=== PATIENT | female | born 1950 | race Caucasian/White ===

== ENCOUNTER 2018-05-30 08:13 | Day surgery (SDC) | payer OTHER, BC ==
--- NOTE | 2018-05-29 15:54 | PDGENHP ---
History & Physical Chief Complaint: left distal radius fracture History of Present Illness: Farida is a pleasant 68 year old female who sustained a left distal radius fracture. She had a closed reduction and splinting done at [facility]. Risks, benefits, and alternatives to conservative treatment with casting as well as surgical intervention including ORIF were discussed and patient would like to proceed with ORIF left distal radius fracture. Pertinent Past, Social, Family History: PMH: depresion, osteopenia, thyroid problems. SH: non-contributory. FH: non-contributory Relevant Physical Exam: Sugar tong splint is well fitting. Sensation intact to light touch throughout the digits. Brisk capillary refill. ROM not tested due to splilnt. Cardiorespiratory Assessment: RRR, CTAB
[2018-05-30] MEDS ORDERED: LR 1,000 ML IV ONE (08:23)
[2018-05-30] MEDS ORDERED: ceFAZolin 2 GM/DEXTROSE 100 ML IV ONE (08:23)
[2018-05-30] MEDS ORDERED: BUPIVACAINE 0.5% 30 ML SDV ONE (08:56)
[2018-05-30] MEDS ORDERED: MIDAZOLAM 2 MG/2 ML VIAL IVP ONE (09:29)
--- NOTE | 2018-05-30 09:29 | PDANEPAE ---
ANE History of Present Illness 68 yo for orif wrist ANE Past Medical History - Cardiovascular History Hx Hypertension: No Hx Arrhythmias: No Hx Chest Pain: No Hx Coronary Artery / Peripheral Vascular Disease: No Hx CHF / Valvular Disease: No Hx Palpitations: No - Pulmonary History Hx COPD: No Hx Asthma/Reactive Airway Disease: No Hx Recent Upper Respiratory Infection: No Hx Oxygen in Use at Home: No Hx Sleep Apnea: No Sleep Apnea Screening Result - Last Documented: Negative - Neurologic History Hx Cerebrovascular Accident: No Hx Seizures: No Hx Dementia: No - Endocrine History Hx Diabetes: No - Renal History Hx Renal Disorders: No - Liver History Hx Hepatic Disorders: No - Neurological & Psychiatric Hx Hx Neurological and Psychiatric Disorders: Yes Neurological / Psychiatric History Comment: depression - Cancer History Hx Cancer: No - Congenital Disorder History Hx Congenital Disorders: No - GI History Hx Gastrointestinal Disorders: No - Other Health History Other Health History: none - Chronic Pain History Chronic Pain: Yes (right shoulder rotator cuff tear) - Surgical History Prior Surgeries: none in last 5 yrs ANE Review of Systems Review of Systems: - Exercise capacity METS (RN): 5 METS ANE Patient History - Allergies Allergies/Adverse Reactions: No Known Allergies Allergy (Verified 05/29/18 16:25) - Home Medications Home medications: home medication list seen and reviewed Home Medications: Celexa 11/28/15 [Last Taken 05/30/18] Synthroid 11/28/15 [Last Taken 05/30/18] traZODONE 11/28/15 [Last Taken 05/29/18] Hydrocodone/APAP 5/325 [[place] 5/325 (*)] 05/29/18 [Last Taken 05/29/18] - NPO status NPO Status: no food or drink >8 hours NPO Since - Liquids (Date): 05/29/18 NPO Since - Liquids (Time): 09:00 NPO Since - Solids (Date): 05/29/18 - Anes Hx Anes Hx: no prior problems - Smoking Hx Smoking Status: Never smoked - Family Anes Hx Family Hx Anesthesia Complications: none ANE Labs/Vital Signs - Vital Signs Height: 5 ft 5 in Weight: 64.41 kg ANE Physical Exam - Airway Neck exam: FROM Mallampati Score: Class 2 Mouth exam: normal dental/mouth exam - Pulmonary Pulmonary: no respiratory distress - Cardiovascular Cardiovascular: regular rate and rhythym - ASA Status ASA Status: II ANE Anesthesia Plan Anesthesia Plan: GA w LMA
[2018-05-30] MEDS ORDERED: PROPOFOL/EMULSION 500 MG/50 ML BOTTLE IV ONE (09:38)
[2018-05-30] MEDS ORDERED: fentaNYL 250 MCG/5 ML INJ ONE (09:38)
[2018-05-30] MEDS ORDERED: ONDANSETRON 4 MG/2 ML VIAL IVP PRN (10:18)
[2018-05-30] MEDS ORDERED: PROMETHAZINE HCL 25 MG/ML INJ IVP PRN (10:18)
[2018-05-30] MEDS ORDERED: HYDROmorphONE/DILAUDID 2 MG/ML INJ IVP PRN (10:18)
[2018-05-30] MEDS ORDERED: NALOXONE HCL 0.4 MG/ML INJ IVP PRN (10:18)
[2018-05-30] MEDS ORDERED: oxyCODONE IR 5 MG TAB PO PRN (10:18)
[2018-05-30] MEDS ORDERED: ACETAMINOPHEN 325 MG TAB PO PRN (10:36)
--- NOTE | 2018-05-30 10:36 | POSTOPPROG ---
Post Op Note Date of Operation: 05/30/18 Surgeon: Elvie Schroeder Anesthesia: LMA Pre-op Diagnosis: l wrist fx Procedure: crpp l wrist Inf/Abcess present in the surg proc area at time of surgery?: No Depth: Superfical (Skin SQ) EBL: Minimal
[2018-05-30] MEDS ORDERED: fentaNYL 100 MCG/2 ML INJ ONE (10:41)
[2018-05-30] MEDS: fentaNYL 100 MCG/2 ML INJ IVP PRN ×3 (10:43→10:56)
[2018-05-30] MEDS ORDERED: HYDROCODONE/APAP 5/325 TAB ONE (11:11)
[2018-05-30] MEDS: HYDROCODONE/APAP 5/325 TAB PO PRN ×2 (11:11→11:57)
--- NOTE | 2018-05-30 11:30 | GOP ---
DATE OF OPERATION: 05/30/2018 SURGEON: Elvie Schroeder MD ANESTHESIA: LMA PREOPERATIVE DIAGNOSIS: Comminuted left distal radius fracture. POSTOPERATIVE DIAGNOSIS: Comminuted left distal radius fracture. PROCEDURE PERFORMED: Closed reduction, percutaneous pinning of the left distal radius with use of fl uoroscopy. FINDINGS: INDICATIONS: This is a 68-year-old female who had fallen last week. Had a distal radius fracture re duced in the emergency room. She lost the reduction. Decided to take her to the operating room to u ndergo a more formal reduction and fixation. DESCRIPTION OF PROCEDURE: The patient was brought to the operating room after the left side had been identified as the correct side by the patient, nurse, and physician. Once in the operating room, sh e was placed under general anesthesia using an LMA. Once asleep, tourniquet was placed around the up per portion of the left arm. The left upper extremity then sterilely prepped and draped in the usual fashion using GSI solution. Once prepped and draped, reduction was performed with fluoroscopy showing reduction was achievable. Once in place, a 2.0 mm K-wire was passed through the radial styloid into the proximal portion of the forearm. Once held in place, three 2.0 mm pins were placed in the distal radius, 2 at the lip of th e distal radius and 1 just medial to Jayesh's tubercle in order to gain further fixation and prevent posterior displacement. Once in place, positions were checked under fluoroscopy and noted to be a pr oper depth and length. The wires were then bent short near the skin and cut short. The pins were then dressed with Xeroform , 4x4s. The arm was undraped. Tourniquet removed from the arm and a short-arm dorsal and volar plas ter splint was put in place and wrapped in an Too wrap. Once the plaster become adequately hardened the patient was woken up, extubated, transferred onto a stretcher, and sent to recovery room in good condition. /[id number]/MODL
[2018-05-30 12:00] VITALS: BP 119/68
== END 2018-05-30 12:10 | disposition home or self-care (01) ==
LOC: FSGY 08:13
PROVIDERS: ATTEND Orthopaedic Surgery
DX: S52.572A Other intraarticular fracture of lower end of left radius, initial encounter for closed fracture (principal); S52.612A Displaced fracture of left ulna styloid process, initial encounter for closed fracture; W01.198A Fall on same level from slipping, tripping and stumbling with subsequent striking against other object, initial encounter; F32.9 Major depressive disorder, single episode, unspecified; E07.9 Disorder of thyroid, unspecified
CPT/HCPCS: C1713; J0690; J2250; J2704; J3010